=== PATIENT | male | born 1970 | race Caucasian/White ===

== ENCOUNTER 2018-06-29 11:23 | Inpatient (IN) | payer OTHER ==
[~2018-06-29] VITALS: Ht 170.2 cm; Wt 110.2 kg
[2018-06-29] MEDS ORDERED: SYNTH PO (14:21)
[2018-06-29] MEDS ORDERED: AVAPRO150 MG PO (14:22)
[2018-07-02] MEDS ORDERED: SYNTHROID175 MCG PO (11:39)
[2018-07-02] MEDS ORDERED: CALCITRIOL0.5 MCG PO (11:40)
[2018-07-02] MEDS ORDERED: PERCOCET 5-3251 EACH PO (11:42)
== END 2018-07-02 14:01 | disposition home or self-care (01) | DRG 627 ==
LOC: SURH 07-01 05:20 → O/R 07-01 05:20 → SURH 07-01 10:35 → EDSTATUS 07-01 15:30 → SURH 07-01 15:30 → CIR.AMB 07-01 15:30 → SURH 07-02 14:01
PROVIDERS: ADMIT Surgery
PROC: 07T10ZZ Resection of Right Neck Lymphatic, Open Approach (ICD-10-PCS; 2018-07-01)
PROC: 0GTK0ZZ Resection of Thyroid Gland, Open Approach (ICD-10-PCS; principal; 2018-07-01 12:30)
DX: C73 Malignant neoplasm of thyroid gland (principal); E03.8 Other specified hypothyroidism; I11.9 Hypertensive heart disease without heart failure; E66.09 Other obesity due to excess calories; R73.01 Impaired fasting glucose

== ENCOUNTER 2020-05-31 | Outpatient (CLI) | payer OTHER ==
[~2020-05-31] MED LIST: AVAPRO150 MG PO; CALCITRIOL0.5 MCG PO; PERCOCET 5-3251 EACH PO; SYNTH PO; SYNTHROID175 MCG PO
== END 2020-05-31 18:00 | disposition home or self-care (01) ==
LOC: PPH VACUNA
DX: Z23 Encounter for immunization (principal)

== ENCOUNTER 2021-03-08 13:30 | Outpatient (CLI) | payer OTHER | END 2021-03-08 13:45 | disposition home or self-care (01) | LOC: PPH VACUNA 13:30 | PROVIDERS: ATTEND Emergency Medicine Pediatric Emergency Medicine | DX: Z23 Encounter for immunization (principal) ==